=== PATIENT | female | born 1980 | race African-American/Black ===

== ENCOUNTER 2019-03-05 00:45 | Emergency (ER) | payer MEDICAID, OTHER ==
[~2019-03-05] VITALS: Ht 175.3 cm; Wt 64.0 kg
[2019-03-05] MEDS ORDERED: ACETAMINOPHEN 325MG TABLET PO ONE (02:45)
[2019-03-05] MEDS ORDERED: TETANUS, DIPHTHERIA, PERTUSSIS VAC/PF 0.5ML (>7YR OLD) IM ONE (02:45)
[2019-03-05] MEDS ORDERED: LIDOCAINE 1%/EPI 1:100,000 10 ML VIAL IJ ONE (02:45)
[2019-03-05] MEDS ORDERED: BACITRACIN ZINC OINT UDPKT TOP ONE (02:45)
[2019-03-05 04:24] VITALS: BP 121/81
== END 2019-03-05 04:28 | disposition home or self-care (01) ==
LOC: ER 00:45
DX: S01.81XA Laceration without foreign body of other part of head, initial encounter (principal); Y08.89XA Assault by other specified means, initial encounter; Y93.01 Activity, walking, marching and hiking; Y92.89 Other specified places as the place of occurrence of the external cause; Y99.8 Other external cause status
CPT/HCPCS: 12011; 70450; 70486; 81025; 90471; 90715; 99284; J3490

== ENCOUNTER 2021-04-24 19:09 | Emergency (ER) | payer MEDICAID, OTHER ==
[~2021-04-24] VITALS: Ht 152.4 cm; Wt 58.0 kg
[2021-04-24] MEDS ORDERED: CYCLOBENZAPRINE 10MG TABLET PO ONE (21:00)
[2021-04-24 22:30] VITALS: BP 146/78
[2021-04-24] MEDS ORDERED: P20 MT (23:08)
[2021-04-24] MEDS ORDERED: IBUP-2028 MT (23:08)
[2021-04-24] MEDS ORDERED: CYCL10TA7 MT (23:08)
== END 2021-04-24 23:20 | disposition home or self-care (01) ==
LOC: ER 19:09
DX: S13.9XXA Sprain of joints and ligaments of unspecified parts of neck, initial encounter (principal); X58.XXXA Exposure to other specified factors, initial encounter; Y93.9 Activity, unspecified; Y92.9 Unspecified place or not applicable; Y99.9 Unspecified external cause status
CPT/HCPCS: 71045; 81025; 93005; 99285